=== PATIENT | male | born 1940 | race African-American/Black ===

== ENCOUNTER 2020-12-02 12:02 | Inpatient (IN) | payer MEDICARE, MEDICAID ==
[2020-12-06 18:57] VITALS: BP 153/71
== END 2020-12-06 19:35 | disposition home health service (06) | DRG 871 ==
LOC: ED 12:02 → 4A 18:43
PROVIDERS: ADMIT Internal Medicine; ATTEND Internal Medicine
DX: A41.9 Sepsis, unspecified organism (principal); G93.41 Metabolic encephalopathy; N30.00 Acute cystitis without hematuria; E87.1 Hypo-osmolality and hyponatremia; N17.9 Acute kidney failure, unspecified; R65.20 Severe sepsis without septic shock; E87.5 Hyperkalemia; I12.9 Hypertensive chronic kidney disease with stage 1 through stage 4 chronic kidney disease, or unspecified chronic kidney disease; E11.22 Type 2 diabetes mellitus with diabetic chronic kidney disease; E11.65 Type 2 diabetes mellitus with hyperglycemia; N18.9 Chronic kidney disease, unspecified; R45.1 Restlessness and agitation; Z23 Encounter for immunization; Z86.73 Personal history of transient ischemic attack (TIA), and cerebral infarction without residual deficits; Z82.49 Family history of ischemic heart disease and other diseases of the circulatory system; Z79.4 Long term (current) use of insulin
CPT/HCPCS: 36415; 70450; 71046; 74176; 76770; 80048; 80053; 80202; 81001; 82140; 82570; 82962; 83036; 83690; 84100; 84156; 84300; 84484; 85007; 85025; 85610; 85730; 87040; 87086; 89050; 93005; G0378; J0692; J0696; J1644; J1815; J2060; J3370; J3486; J7030; J7042; J7050